=== PATIENT | female | born 1965 | race Two or more races ===

== ENCOUNTER 2018-12-19 09:16 | Emergency (ER) | payer MEDICAID, OTHER ==
[~2018-12-19] VITALS: Ht 162.6 cm; Wt 72.6 kg
[~2018-12-19 09:16] MED LIST: DIABETA5 MG PO; GLUCOPHAGE500 MG PO
[2018-12-19 09:20] VITALS: BP 122/74
--- NOTE | 2018-12-19 09:20 | NUR ---
ED Nurse Note: Patient walked in to ER due to pulsating headache on left side that radiates to her left ear. She stated that she feels pain everytime she apply pressure to her ear. Alert and oriented x4, verbally responsive. Breathing even and unlabored. Afebrile.
--- NOTE | 2018-12-19 09:20 | NUR ---
ED Nurse Note: pt reported that she takes insulin at home for her Type 2 Diabetic. However, pt does not remember the name or unit of insulin she takes.
--- NOTE | 2018-12-19 09:38 | Emergency Room Report ---
History of Present Illness General Chief Complaint: Headache Source: Patient Present Illness HPI Patient presents with complaints of discomfort to the left temporal area of her head reports that since Thursday She has felt off-and-on discomfort She feels that when the pain comes on she can palpate the area and has reproducible discomfort Denies any change with vision denies any ear pain Denies any trauma denies any change in medications reports that the pain is intermittent Almost feels a pulsating type of discomfort Allergies: Coded Allergies: No Known Allergies (Unverified , 07/03/12) Patient History Past Medical History: see triage record Last Menstrual Period: no period Reviewed Nursing Documentation: PMH: Agreed; PSxH: Agreed Nursing Documentation-PMH Past Medical History: No History, Except For Hx Diabetes: Yes - type 2 Review of Systems All Other Systems: negative except mentioned in HPI Physical Exam Vital Signs Date Time Temp Pulse Resp B/P (MAP) Pulse Ox O2 Delivery O2 Flow Rate FiO2 12/19/18 09:20 97.5 77 17 124/79 (94) 97 Room Air Sp02 EP Interpretation: reviewed, normal General Appearance: well appearing, no apparent distress Head: normocephalic, atraumatic Eyes: bilateral eye PERRL, bilateral eye EOMI ENT: hearing grossly normal, normal pharynx, TMs + canals normal, uvula midline Neck: full range of motion, supple, no meningismus, no bony tend Respiratory: lungs clear, normal breath sounds, no rhonchi, no respiratory distress, no retraction, no accessory muscle use Cardiovascular #1: normal peripheral pulses, regular rate, rhythm, no edema, no gallop, no JVD, no murmur Gastrointestinal: normal bowel sounds, non tender, soft, no mass, no organomegaly, non-distended, no guarding, no hernia, no pulsatile mass, no rebound Genitourinary: no CVA tenderness Musculoskeletal: normal inspection Neurologic: oriented x3, responsive, nuclear security officer III-XII nml as tested, motor strength/ tone normal, sensory intact Psychiatric: mood/affect normal Skin: no rash Lymphatic: normal inspection, no adenopathy Medical Decision Making Last Vital Signs Date Time Temp Pulse Resp B/P (MAP) Pulse Ox O2 Delivery O2 Flow Rate FiO2 12/19/18 09:20 97.5 77 17 124/79 (94) 97 Room Air Eva Kincaid DO Dec 19, 2018 09:38
[2018-12-19] MEDS ORDERED: NKM (09:41)
--- NOTE | 2018-12-19 10:15 | Diagnostic Imaging Report ---
EXAM: CT Head Without Intravenous Contrast CLINICAL HISTORY: PAIN TECHNIQUE: Axial computed tomography images of the head/brain without intravenous contrast. CTDI is 70.38 mGy and DLP is 1383 mGy-cm. One or more of the following dose reduction techniques were used: automated exposure control, adjustment of the mA and/or kV according to patient size, use of iterative reconstruction technique. Coronal reformatted images were created and reviewed. COMPARISON: No relevant prior studies available. FINDINGS: Brain: Unremarkable. No evidence of acute intracranial hemorrhage. No significant white matter disease. No edema. No mass effect or midline shift. Ventricles: Unremarkable. No ventriculomegaly. Bones/joints: Incidental note of a 9 mm subtle rounded osseous excrescence along the outer table of the anterior aspect of the right parietal bone (series 3 image 29, series 5 image 19), likely a small osteoma. Soft tissues: Unremarkable. Sinuses: Unremarkable as visualized. No acute sinusitis. Mastoid air cells: Unremarkable as visualized. No mastoid effusion. IMPRESSION: No acute intracranial findings.
[2018-12-19] MEDS ORDERED: IBUPROFEN600 MG ORAL (11:16)
[2018-12-19 11:33] VITALS: BP 118/62
--- NOTE | 2018-12-19 11:33 | NUR ---
ED Nurse Note: Pt cleared by ERMD for discharge. DC instructions/prescription was given and explained to pt and verbalized understanding of teachings. All medical deviecs such as ID band removed. Pt is AAO x4, ambulatory and left with all personal belongings.
== END 2018-12-19 11:33 | disposition home or self-care (01) ==
LOC: EMR 09:37
DX: R51 Headache (principal); E11.9 Type 2 diabetes mellitus without complications
CPT/HCPCS: 70450; 82962; 99284